=== PATIENT | female | born 1960 | race Caucasian/White ===

== ENCOUNTER → 2021-08-28 | Day surgery (SDC) | payer BC ==
--- NOTE | 2021-08-28 11:00 | RAD REPORT ---
EXAM DESCRIPTION: US - Guided FNA Non Breast - 08/28/2021 10:37 am CLINICAL HISTORY: E04.1 COMPARISON: BREAST/AXILLA, LIMITED dated 08/31/2017 FINDINGS: Preoperative diagnosis: Left thyroid nodule. Post operative diagnosis: Same. Conscious Sedation: None Fluoroscopy time: None Contrast used: None Estimated blood loss: Minimal Specimens:3 fine-needle aspirates were obtained of the left thyroid nodule The left neck was prepped and draped in the usual sterile fashion. 1% lidocaine was infiltrated into the subcutaneous tissues for local anesthesia. Real time ultrasound scanning of the left neck demonst rated the solid left thyroid nodule. Under ultrasound guidance, 3 25 gauge aspirates were obtained of the nodule. These were passed to the on-site workcell operator. IMPRESSION: Technically successful ultrasound-guided fine-needle aspiration of a left thyroid nodule . No immediate complications.
== END ==
LOC: FNA 10:20
PROVIDERS: ATTEND Otolaryngology
PROC: 0GJK3ZZ Inspection of Thyroid Gland, Percutaneous Approach (ICD-10-PCS; principal; 2021-08-28)
DX: E04.1 Nontoxic single thyroid nodule (principal)
CPT/HCPCS: 88162

== ENCOUNTER 2024-08-17 12:09 | Emergency (ER) | payer BC, OTHER ==
[2024-08-17] MEDS ORDERED: OXYMETAZOLINE HCL 0.05% 15ML NAS ONE (12:35)
--- NOTE | 2024-08-17 13:27 | EDPHYS ---
Physician Documentation [facility] Name: Adan Rivera Age: 64 yrs Sex: Female : 1960 Arrival Date: 08/17/2024 Time: 12:09 Bed 19 Private MD: ED Physician Syed Mckinney HPI: 08/17 12:34 This 64 yrs old Female presents to ER via Ambulatory with complaints of Nose ec2 Bleed. 12:34 Patient arrives today for evaluation of bleeding from her right nare. States that she ec2 has frequent nosebleeds with the weather changes. Patient reports otherwise no other concerns. Is on Plavix.. Historical: - Allergies: 12:28 MAMTA INHIBITORS (ANGIOEDEMA); ss - Home Meds: 12:28 losartan 25 mg oral tablet 1 tab once [Active]; clopidogrel 75 mg oral tablet 1 tab ss daily [Active]; pantoprazole 40 mg oral tablet, delayed release (enteric coated) [Active]; atorvastatin 40 mg oral tablet [Active]; ezetimibe 10 mg oral tablet 1 tab nightly [Active]; isosorbide mononitrate 30 mg Oral Tablet, Extended Release 24 hr [Active]; Ismael Aspirin 81 mg Oral once daily [Active]; - PMHx: 12:28 angioneurotic edema; GERD; GI Bleed; Hypertension; RA; Ulcers; ss - Immunization history:: Client reports receiving the 2nd dose of the Covid vaccine. - Infectious Disease History:: Denies. - Social history:: Smoking status: Patient/guardian denies using tobacco, but has a distant history of tobacco abuse. ROS: 12:34 Constitutional: as per hpi ec2 Exam: 12:34 Constitutional: GEN: NAD Head: atraumatic Eyes: EOMI Ears: External ears are normal. ec2 Nose: Blood present in the right nare with no active bleeding identified. CV: regular rate LUNGS: no respiratory distress ABD: non-distended SKIN: no evidence of rashes MSK: no evidence of trauma Vital Signs: 12:26 BP 186 / 80; Pulse 62; Resp 16; Temp 97.7(O); Pulse Ox 95% on R/A; Weight 79.38 kg; ss Height 5 ft. 6 in. ; Pain 0/10; 13:36 BP 140 / 80; Pulse 66; Resp 16; Pulse Ox 99% on R/A; hb 12:26 Body Mass Index 28.25 (79.38 kg, 167.64 cm) ss 12:26 Pain Scale: Adult ss Procedures: 12:35 Epistaxis treatment: A small amount of bleeding noted from right nare. Treated using ec2 Oxymetazoline sprays, nasal clamp, Bleeding stopped. MDM: 12:15 Medical Screening Exam initiated ec2 12:34 Data reviewed: vital signs, nurses notes. ED course: Patient arrives today for ec2 evaluation of bleeding from the right nare. Examination remarkable for HEENT findings as above. Will clear the patient's bilateral naris, applied bilateral Afrin spray and apply nasal clamp.. 13:26 ED course: On reassessment patient with cessation of bleeding. Will discharge home. ec2 Return precautions given.. Administered Medications: 12:39 Drug: Oxymetazoline Intranasal Drops (0.05 %) 1 sprays Intranasal once {Note: hb administered by Dr. Mckinney.} Route: Intranasal; Site: both nares; 13:10 Follow up: Response: No adverse reaction hb Disposition Summary: 08/17/24 13:26 Discharge Ordered Notes: Location: Home ec2 Condition: Stable ec2 Diagnosis - Epistaxis ec2 Followup: ec2 - With: Private Physician - When: - Reason: Re-evaluation by your physician Discharge Instructions: - Discharge Summary Sheet ec2 - Nosebleed, Adult, [id number] ec2 Forms: - Medication Reconciliation Form ec2 - Antibiotic Education ec2 - Prescription Opioid Use ec2 - Patient Portal Instructions ec2 - Leadership Thank You Letter ec2 Signatures: Jodi Guerin RN RN Sujatha Hines RN RN Syed Mckinney MD MD ec2 Corrections: (The following items were deleted from the chart) 13:27 12:35 Epistaxis treatment: A small amount of bleeding noted from right nare. Treated ec2 using Oxymetazoline sprays, nasal clamp, ec2
--- NOTE | 2024-08-17 13:27 | ER ---
Nurse's Notes [facility] Name: Adan Rivera Age: 64 yrs Sex: Female : 1960 Arrival Date: 08/17/2024 Time: 12:09 Bed 19 Private MD: Diagnosis: Epistaxis Presentation: 08/17 12:26 Chief complaint: Patient states: nose bleed since 0700 this morning. Pt reports that ss this happens when the weather changes. Coronavirus screen: Client denies travel out of the [place] in the last 14 days. Ebola Screen: Patient denies exposure to infectious person. Patient denies travel to an Ebola-affected area in the 21 days before illness onset. Initial Sepsis Screen: Does the patient meet any 2 criteria? No. Patient's initial sepsis screen is negative. Does the patient have a suspected source of infection? No. Patient's initial sepsis screen is negative. Risk Assessment: Do you want to hurt yourself or someone else? Patient reports no desire to harm self or others. Onset of symptoms was August 17, 2024. 12:26 Method Of Arrival: Ambulatory ss 12:26 Acuity: NEGRITA 3 ss Historical: - Allergies: 12:28 MAMTA INHIBITORS (ANGIOEDEMA); ss - Home Meds: 12:28 losartan 25 mg oral tablet 1 tab once [Active]; clopidogrel 75 mg oral tablet 1 tab ss daily [Active]; pantoprazole 40 mg oral tablet, delayed release (enteric coated) [Active]; atorvastatin 40 mg oral tablet [Active]; ezetimibe 10 mg oral tablet 1 tab nightly [Active]; isosorbide mononitrate 30 mg Oral Tablet, Extended Release 24 hr [Active]; Ismael Aspirin 81 mg Oral once daily [Active]; - PMHx: 12:28 angioneurotic edema; GERD; GI Bleed; Hypertension; RA; Ulcers; ss - Immunization history:: Client reports receiving the 2nd dose of the Covid vaccine. - Infectious Disease History:: Denies. - Social history:: Smoking status: Patient/guardian denies using tobacco, but has a distant history of tobacco abuse. Screenin:24 [facility] ED Fall Risk Assessment (Adult) History of falling in the last 3 months, hb including since admission No falls in past 3 months (0 pts) Confusion or Disorientation No (0 pts) Intoxicated or Sedated No (0 pts) Impaired Gait No (0 pts) Mobility Assist Device Used No (0 pt) Altered Elimination No (0 pt) Score/Fall Risk Level 0 - 2 = Low Risk Oriented to surroundings, Maintained a safe environment, Educated pt \T\ family on fall prevention, incl call for assistance when getting out of bed. Abuse screen: Denies threats or abuse. Denies injuries from another. Nutritional screening: No deficits noted. Tuberculosis screening: No symptoms or risk factors identified. Assessment: 12:33 Reassessment: clamped placed on nose during triage. ss 13:24 General: Appears in no apparent distress. Behavior is calm, cooperative. Pain: Denies hb pain. Neuro: Level of Consciousness is awake, alert, obeys commands, Oriented to person, place, time, situation. Cardiovascular: Patient's skin is warm and dry. Respiratory: Respiratory effort is even, unlabored, Respiratory pattern is regular, symmetrical. 13:36 Reassessment: Patient appears in no apparent distress at this time. Patient and/or hb family updated on plan of care and expected duration. Pain level reassessed. Patient is alert, oriented x 3, equal unlabored respirations, skin warm/dry/pink. Vital Signs: 12:26 BP 186 / 80; Pulse 62; Resp 16; Temp 97.7(O); Pulse Ox 95% on R/A; Weight 79.38 kg; ss Height 5 ft. 6 in. ; Pain 0/10; 13:36 BP 140 / 80; Pulse 66; Resp 16; Pulse Ox 99% on R/A; hb 12:26 Body Mass Index 28.25 (79.38 kg, 167.64 cm) 12:26 Pain Scale: Adult ss ED Course: 12:11 Patient arrived in ED. ra3 12:12 Syed Mckinney MD is Attending Physician. ec2 12:28 Triage completed. ss 12:28 Arm band placed on right wrist. ss 13:24 Patient has correct armband on for positive identification. Provided Education on: use hb of call light . 13:24 No provider procedures requiring assistance completed. Patient did not have IV access hb during this emergency room visit. 13:36 Sujatha Hines, KARO is Primary Nurse. hb Administered Medications: 12:39 Drug: Oxymetazoline Intranasal Drops (0.05 %) 1 sprays Intranasal once {Note: hb administered by Dr. Mckinney.} Route: Intranasal; Site: both nares; 13:10 Follow up: Response: No adverse reaction hb Medication: 13:24 VIS not applicable for this client. hb Outcome: 13:26 Discharge ordered by . [email or web address] 13:36 Discharged to home ambulatory, with significant other, hb 13:36 Condition: stable 13:36 Discharge instructions given to patient, significant other, Instructed on discharge instructions, follow up and referral plans. medication usage, Demonstrated understanding of instructions, follow-up care, medications, 13:37 Patient left the ED. hb Signatures: Jodi Guerin, RN RN Sujatha Hines RN RN hb Corral, Edwin, MD MD ec2 Felicita [place] [facility]
[2024-08-17 15:23] VITALS: TEMP 97.7
[2024-08-17 15:25] VITALS: BP 140/80; O2SAT 99
== END 2024-08-17 13:37 | disposition home or self-care (01) ==
LOC: ER 12:09
DX: R04.0 Epistaxis (principal); Z79.01 Long term (current) use of anticoagulants
CPT/HCPCS: 30901; 99283